=== PATIENT | male | born 1990 | race Caucasian/White ===

== ENCOUNTER 2018-01-12 18:14 | Emergency (ER) | payer SELFPAY, OTHER ==
[2018-01-12] MEDS: predniSONE 20 MG TAB PO (21:42)
[2018-01-12] MEDS: ALBUTEROL 0.083% (NEB) 2.5 MG/3 ML AMP NEB (21:45)
[2018-01-12] MEDS: IPRATROPIUM (NEB) 0.5 MG/2.5 ML AMP NEB (21:45)
== END 2018-01-12 22:58 | disposition home or self-care (01) ==
LOC: FTE 18:14
DX: J40 Bronchitis, not specified as acute or chronic (principal); R06.2 Wheezing; F17.210 Nicotine dependence, cigarettes, uncomplicated
CPT/HCPCS: 94644; 99284-25